=== PATIENT | male | born 1965 | race African-American/Black ===

== ENCOUNTER 2017-12-17 19:16 | Emergency (ER) | payer OTHER ==
[~2017-12-17] VITALS: Ht 175.3 cm; Wt 72.6 kg
[2017-12-17 20:16] LABS: HEMATOCRIT 35.3 % (38.0-50.0); HEMOGLOBIN 11.6 G/DL (12.5-16.6); MCH 30.3 PG (29.0-34.0); MCHC 32.9 G/DL (30.0-36.0); MCV 92.2 FL (86-99); NRBC (%) 0.7 /100 WBC (0-0); PLATELET COUNT 176 K/uL (156-360); RBC DIS.WIDTH-CV 15.9 % (11.8-14.6); RBC DIS.WIDTH-SD 53.3 % (39-53); RED BLOOD COUNT 3.83 M/uL (4.00-5.50); WHITE BLOOD COUNT 4.6 K/uL (4.1-10.2)
[2017-12-17 20:31] LABS: ALBUMIN 3.5 g/dL (3.2-4.8); CHLORIDE 100 mEq/L (99-109); POTASSIUM 4.6 mEq/L (3.7-5.4); SODIUM 138 mEq/L (136-147)
[2017-12-17 20:34] LABS: GLUCOSE 175 mg/dL (70-99); TOTAL PROTEIN 6.1 g/dL (6.4-8.3)
[2017-12-17 20:36] LABS: TOTAL BILIRUBIN 0.7 mg/dL (0.0-1.0)
[2017-12-17 20:37] LABS: ALKALINE PHOSPHATASE 95 IU/L (3-129); CREATININE 8.5 mg/dL (0.6-1.3)
[2017-12-17 20:38] LABS: UREA NITROGEN (BUN) 47 mg/dL (9-23)
[2017-12-17 20:39] LABS: AST (GOT) 16 IU/L (2-34)
[2017-12-17 20:40] LABS: ALT (GPT) 21 IU/L (3-49)
[2017-12-17 20:50] LABS: GFR ESTIMATE (CALCULATED) 7 mL/min/ (58.99-99999)
[2017-12-18] MEDS ORDERED: ZITHROMAX Z-PA250 MG PO (00:53)
[2017-12-18] MEDS ORDERED: BENTYL20 MG PO (00:53)
[2017-12-18] MEDS ORDERED: ZOFRAN4 MG PO (00:53)
[2017-12-18 01:09] LABS: PTT 35.8 SEC (25-37)
[2017-12-18 01:16] VITALS: BP 177/100
[2017-12-18] MEDS ORDERED: ADVAIR 250/501 DISK IH (01:18)
== END 2017-12-18 01:19 | disposition home or self-care (01) ==
LOC: EME 19:16
PROVIDERS: Emergency Medicine
DX: J18.9 Pneumonia, unspecified organism (principal); K40.20 Bilateral inguinal hernia, without obstruction or gangrene, not specified as recurrent; R11.2 Nausea with vomiting, unspecified; I12.0 Hypertensive chronic kidney disease with stage 5 chronic kidney disease or end stage renal disease; N18.6 End stage renal disease; E11.22 Type 2 diabetes mellitus with diabetic chronic kidney disease; Z99.2 Dependence on renal dialysis; Z87.891 Personal history of nicotine dependence; Z89.411 Acquired absence of right great toe; Z89.422 Acquired absence of other left toe(s)
CPT/HCPCS: 71046; 74176; 80053; 83605; 85027; 85610; 85730; 87502; 94640; 99281; 99284

== ENCOUNTER 2018-02-18 10:25 | Day surgery (SDC) | payer OTHER ==
[~2018-02-18] VITALS: Ht 175.3 cm; Wt 70.3 kg
[~2018-02-18 10:25] MED LIST: ADVAIR 250/501 DISK IH; APRESOLINE50 MG PO; ATARAX,VISTARIL25 MG PO; BENTYL20 MG PO; CALCIUM ACETAT667 MG PO; COREG12.5 M1 PO; COZAAR50 MG PO; HYTRIN10 MG PO; ISOSORBIDE DINI30 MG PO; LASIX40 MG PO; LO-DOSE ASPIRIN81 M2 PO; PROCARDIA XL30 MG PO; PROTONIX40 MG PO; REGLAN10 MG PO; RENAL CAPS SOFTG1 MG PO; SENSIPAR60 MG PO; ZITHROMAX Z-PA250 MG PO; ZOFRAN4 MG PO; ZOLOFT100 MG PO
[2018-02-18 13:18] LABS: CHLORIDE 97 mEq/L (99-109); POTASSIUM 4.1 mEq/L (3.7-5.4); SODIUM 141 mEq/L (136-147)
[2018-02-18 13:20] LABS: GLUCOSE 89 mg/dL (70-99)
[2018-02-18 13:24] LABS: CREATININE 6.9 mg/dL (0.6-1.3); GFR ESTIMATE (CALCULATED) 11 mL/min/ (58.99-99999)
[2018-02-18 13:25] LABS: UREA NITROGEN (BUN) 22 mg/dL (9-23)
[2018-02-18] MEDS ORDERED: PERCOCET 5/31 TABLET PO (15:44)
[2018-02-18] MEDS ORDERED: COLACE100 MG PO (15:44)
[2018-02-18 17:40] VITALS: BP 160/78
[2018-02-18 19:13] VITALS: BP 141/70
== END 2018-02-18 19:15 | disposition home or self-care (01) ==
LOC: SDC 10:25
PROVIDERS: Surgery
DX: K40.20 Bilateral inguinal hernia, without obstruction or gangrene, not specified as recurrent (principal); I12.9 Hypertensive chronic kidney disease with stage 1 through stage 4 chronic kidney disease, or unspecified chronic kidney disease; E11.22 Type 2 diabetes mellitus with diabetic chronic kidney disease; N18.9 Chronic kidney disease, unspecified; Z99.2 Dependence on renal dialysis; Z79.82 Long term (current) use of aspirin; Z79.52 Long term (current) use of systemic steroids; Z79.4 Long term (current) use of insulin; Z87.891 Personal history of nicotine dependence; Z83.3 Family history of diabetes mellitus
CPT/HCPCS: 80048; 82948; 87641; C1727; C1781; J0690; J1100; J1170; J2250; J2405; J2597; J2710; J2765; J2795; J3010; J3475; J7050; P9045; S0020